=== PATIENT | male | born 1955 | race Caucasian/White ===

== ENCOUNTER 2017-01-12 18:42 | Emergency (ER) | payer OTHER ==
[2017-01-12] MEDS ORDERED: Ketorolac INJ* 30 MG/ML 1 ML VIAL IV ONE (21:58)
[2017-01-12] MEDS ORDERED: Morphine INJ* 4 MG/ML 1 ML CARPUJECT IV ONE (21:58)
[2017-01-12] MEDS ORDERED: Ondansetron INJ* 2 MG/ML VIAL IV ONE (21:58)
[2017-01-12] MEDS ORDERED: NS 0.9% 1000 ML* 2,000 ML IV ONE (21:58)
[2017-01-12 23:20] LABS: Hematocrit 42 % (42-52); Hemoglobin 14.6 g/dl (14.0-18.0); Mean Corpuscular HGB Conc 35 g/dl (31-36); Mean Corpuscular Hemoglobin 32 pg (27-31); Mean Corpuscular Volume 91 fL (80-94); Mean Platelet Volume 8 um3 (7.4-10.4); Red Blood Count 4.59 10^6/ul (4.0-5.4); Red Cell Distribution Width 13 % (10.5-15)
[2017-01-12 23:21] LABS: Urine Bilirubin Negative (Negative); Urine Glucose 3+(>=500 mg/dL) (Negative); Urine Nitrite Negative (Negative)
[2017-01-12 23:32] LABS: BUN/Creatinine Ratio 15.1 (8-20); EGFR African American 66.4 (>60); EGFR Non-African American 51.6 (>60); Globulin 2.9 g/dL (2-4); Potassium 3.6 mmol/L (3.5-5.0); Total Bilirubin 0.8 mg/dL (0.2-1.0); Total Protein 6.9 g/dL (6.4-8.9)
--- NOTE | 2017-01-13 01:09 | ED ---
Anabel Pastor Rebecca, scribed for [email or web address] on 01/12/17 at 2200 . Back Pain - HPI Summary HPI Summary: Pt is a 61 y/o M who presents to ED c/o back pain. Pain began this morning at approximately 0430 as R flank pain and it is now moving into the L flank as well. Pain has been a constant 4-5/10 ache with intermittent sharp, shooting pain that is ranked 8/10. Sx aggravated and alleviated by nothing, unchanged by Tylenol. Denies hematuria and urinary frequency. Dx R kidney stone in August or September. - History of Current Complaint Chief Complaint: EDFlankPain Stated Complaint: BACK PAIN POSS KIDNEY STONE Time Seen by Provider: 01/12/17 21:50 Hx Obtained From: Patient Onset/Duration: Lasting Hours, Still Present Timing: Constant - 4-5/10, Intermittent - 8/10 Back Pain Location: Is Discrete @ - R flank and L flank; R>L Severity Currently: Moderate - 4-5/10 Pain Intensity: 5 Pain Scale Used: 0-10 Numeric Character: Sharp - Intermittent, Aching - COnstant Aggravating Symptom(s): Nothing Alleviating Symptom(s): Nothing Associated Signs And Symptoms: Positive: Negative - Allergies/Home Medications Allergies/Adverse Reactions: Allergies Allergy/AdvReac Type Severity Reaction Status Date / Time Sulfa Drugs Allergy Mild Rash Verified 01/12/17 23:08 PMH/Surg Hx/FS Hx/Imm Hx Endocrine/Hematology History: Reports: Hx Diabetes Denies: Hx Systemic Lupus Erythematosus Cardiovascular History: Reports: Hx Hypercholesterolemia, Hx Hypertension Denies: Hx Congestive Heart Failure History: Reports: Hx Benign Prostatic Hyperplasia, Hx Renal Disease - URINARY INCONTINENCE Sensory History: Reports: Hx Contacts or Glasses Opthamlomology History: Reports: Hx Contacts or Glasses - Cancer History Hx Chemotherapy: No - Surgical History Surgery Procedure, Year, and Place: X5 VESSEL CABG Infectious Disease History: No Infectious Disease History: Reports: Hx Human Immunodeficiency Virus (HIV) Denies: Traveled Outside the [place] in Last 30 Days - Family History Known Family History: Positive: Cardiac Disease, Diabetes - Social History Alcohol Use: Occasionally Substance Use Type: Reports: None Smoking Status (MU): Never Smoked Tobacco Review of Systems Negative: frequency, hematuria Positive: Other - R and L flank pain, R>L All Other Systems Reviewed And Are Negative: Yes Physical Exam - Summary Physical Exam Summary: Appearance: Well appearing, no pain distress Skin: warm, dry, reflects adequate perfusion Head/face: normal Eyes: EOMI, KARLEY ENT: normal Neck: supple, nontender Respiratory: CTA, breath sounds present Cardiovascular: RRR, pulses symmetrical Abdomen: tenderness in the RUQ and RLQ, soft Bowel: present Musculoskeletal: normal, strength/ROM intact Neuro: normal, sensory motor intact, A&Ox3 Triage Information Reviewed: Yes Vital Signs On Initial Exam: Initial Vitals Temp Pulse Resp BP Pulse Ox 98.1 F 72 14 138/70 98 01/12/17 18:54 01/12/17 18:54 01/12/17 18:54 01/12/17 18:54 01/12/17 18:54 Vital Signs Reviewed: Yes Diagnostics - Vital Signs Vital Signs Temp Pulse Resp BP Pulse Ox 01/12/17 21:28 98.1 F 66 16 114/54 100 01/12/17 18:54 98.1 F 72 14 138/70 98 - Laboratory Result Diagrams: 01/12/17 22:20 01/12/17 22:20 Lab Statement: Any lab studies that have been ordered have been reviewed, and results considered in the medical decision making process. - CT CT Abd/Pel CT Interpretation: No Acute Changes - Negative for right or left urinary tract stone or obstruction. No bowel obstruction, free air, or free fluid. Negative for diverticulitis or colitis. Normal appendix visualized. Mild hepatomegaly. Spleen is borderline in size. Normal pancreas. Normal adrenal glands. Cholelithiasis noted. Ventral hernia containing fat but no bowel. Enlarged prostate. ED physician reviewed radiology report and agrees. CT Interpretation Completed By: Radiologist - Ultrasound No standard instances Ultrasound Interpretation Completed By: Radiologist - Abdomen US: There are small gallstones in the gallbladder. However, no gallbaldder wall thickening or pericholecystic fluid. Normal common bile duct is 5.8 mm.Enlarged liver, probably somewhat fatty. No right hydronephrosis. No right upper quadrant free fluid. ED physician reviewed radiology report and agrees. Re-Evaluation - Re-Evaluation First Eval Re-Evaluation Time: 00:31 Comment: Discussed US results with the pt. Back Pain Course/Dx - Course Assessment/Plan: Pt is a 61 y/o M who presents to ED c/o back pain. Pain began this morning at approximately 0430 as R flank pain and it is now moving into the L flank as well. Pain has been a constant 4-5/10 ache with intermittent sharp, shooting pain that is ranked 8/10. Sx unchanged by Tylenol. Denies hematuria and urinary frequency. Dx R kidney stone in August or September. CT Abd/Pel and Abdominal US reveal no acute findings. Pt refused CXR. UA negative for UTI. In the ED course, pt was given Morphine, Zofran, Toradol and IV fluids. Pt will be D/C to home with Dx of right flank pain with Rx for Zofran and a follow up with his PCP. He understands and agrees. Allergies noted. Elevated BP noted. Medications reviewed. - Diagnoses Provider Diagnoses: Right flank pain, Dehydration, Hyponatremia Discharge - Discharge Plan Condition: Stable Disposition: HOME Patient Education Materials: Flank Pain (ED) Referrals: David Diego MD [Primary Care Provider] - 3 Days The documentation as recorded by the Anabel aj Rebecca accurately reflects the service I personally performed and the decisions made by Adriane biggs Emmanuel.
[2017-01-13 01:10] VITALS: BP 98/58
--- NOTE | 2017-01-13 07:48 | RAD ---
CLINICAL HISTORY: Right flank pain COMPARISON: Similar CT examination dated September 13, 2014 TECHNIQUE: Noncontrast CT examination of the abdomen and pelvis from the lung bases through the initial tuberosities. FINDINGS: VISUALIZED LUNG BASES: The visualized lung bases are grossly clear. There is no pleural effusion. ABDOMEN AND PELVIS: Evaluation of the solid organs and vasculature is limited without intravenous contrast. The liver is top normal and maximum cephalocaudal projection measuring just over 20 cm. Liver is homogenous in attenuation. The spleen, pancreas and adrenal glands are grossly normal in appearance. There are hyperattenuating stones in the dependent portion of the gallbladder. The kidneys are normal in appearance without focal mass, calcification or signs of hydronephrosis. The small and large bowel are not distended.The patient's normal appendix is identified in the right lower quadrant measuring 5 mm in diameter (axial image 115 and coronal image 40). There is no gross retroperitoneal or mesenteric lymphadenopathy. The prostate gland measures 4.6 x 6.8 cm in the axial plane and 3.3 cm in the cephalocaudal projection. There are bilateral fat-containing inguinal hernias. The mildly calcified abdominal aorta and iliac arteries are normal in course and diameter. Degenerative changes include multilevel loss of intervertebral disc height involving the lower thoracic and lumbar spine.There are no sinister bone lesions. IMPRESSION: 1. No renal calculi or signs of urinary obstruction. 2. Normal gastrointestinal tract within the limitations of no oral or IV contrast. 3. Cholelithiasis without signs of biliary obstruction. 4. Borderline hepatomegaly.
--- NOTE | 2017-01-13 07:50 | RAD ---
HISTORY: Right upper quadrant pain. COMPARISONS: Similar examination September 23, [address] of the abdomen and pelvis that demonstrates cholelithiasis. TECHNIQUE: Multiple transverse and longitudinal ultrasound images were obtained of the right upper quadrant. FINDINGS: LIVER: The liver is normal in dimensions and exhibits mildly increased and homogenous echogenicity. Normal hepatic and portal venous blood flow is duplicated with color flow imaging. There is no gross intrahepatic biliary duct dilatation. GALLBLADDER AND EXTRAHEPATIC BILIARY DUCT: In the dependent portion of the gallbladder there are several mobile, echogenic shadowing gallstones.. There is no pericholecystic fluid or gallbladder wall thickening. The common bile duct measures a maximum diameter of 6 mm. PANCREAS: The portions of the pancreas not obscured by bowel gas are normal in appearance. RIGHT KIDNEY: The right kidney is normal in size, morphology and echogenicity. AORTA AND IVC: The visualized portions are normal in appearance and not pathologically dilated. IMPRESSION: 1. CHOLELITHIASIS WITHOUT SONOGRAPHIC SIGNS OF BILIARY OBSTRUCTION OR ACUTE INFLAMMATORY CHANGE. 2. HOMOGENOUSLY INCREASED ECHOGENICITY THE LIVER COULD BE SEEN IN THE SETTING OF HEPATIC STEATOSIS OR OTHER CHRONIC INFILTRATIVE DISEASE.
== END 2017-01-13 01:28 | disposition home or self-care (01) ==
LOC: ED 18:42
DX: R10.84 Generalized abdominal pain (principal); E86.0 Dehydration; M54.9 Dorsalgia, unspecified; E87.1 Hypo-osmolality and hyponatremia
CPT/HCPCS: 36415; 74176; 76705; 80053; 81003; 83605; 83690; 84484; 85025; 85610; 85730; 96374; 96375; 99284; J1885; J2270; J2405

== ENCOUNTER 2017-06-25 08:56 | Emergency (ER) | payer OTHER ==
[2017-06-25 09:13] VITALS: BP 136/64
--- NOTE | 2017-06-25 10:04 | UC ---
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 Patient noted left ear had some drainage 2 days ago did feel better but now again feels very bad - History of Current Complaint Chief Complaint: UCRespiratory Stated Complaint: EAR PAIN SORE THROAT COUGH CONGESTION Time Seen by Provider: 06/25/17 10:00 Hx Obtained From: Patient Onset/Duration: Gradual Onset, Lasting Weeks - 2 Severity Initially: Moderate Severity Currently: Moderate Pain Intensity: 5 Pain Scale Used: 0-10 Numeric Aggravating Factors: Nothing Alleviating Factors: Nothing Associated Signs/Symptoms: Positive: Discharge - From left ear - Allergies/Home Medications Allergies/Adverse Reactions: Allergies Allergy/AdvReac Type Severity Reaction Status Date / Time morphine Allergy Rash Verified 06/25/17 09:06 Home Medications: Home Medications Emtricitab/Rilpiviri/Tenof Ala [Odefsey Tablet] 200 mg PO DAILY 06/25/17 [ History Confirmed 06/25/17] Insulin Glargine/Lixisenatide [Soliqua 100 Unit-33 Mcg/ml Pen] 30 units DAILY [History Confirmed 06/25/17] Tadalafil [Cialis] 20 mg PO PRN 06/25/17 [History] Valsartan/HCTZ 160/12.5(NF) [Diovan HCT 160/12.5 (NF)] 160 mg PO DAILY 06/25/17 [History Confirmed 06/25/17] PMH/Surg Hx/FS Hx/Imm Hx Previously Healthy: No Endocrine History: Dyslipidemia Cardiovascular History: Hypertension Other History Of: HIV - Surgical History Surgical History: Yes Surgery Procedure, Year, and Place: X5 VESSEL CABG - Family History Known Family History: Positive: Cardiac Disease, Diabetes - Social History Occupation: Retired Lives: With Family Alcohol Use: Occasionally Substance Use Type: None Smoking Status (MU): Never Smoked Tobacco - Immunization History Most Recent Influenza Vaccination: 2013 Most Recent Tetanus Shot: within 10 years Most Recent Pneumonia Vaccination: never Review of Systems Constitutional: Fever, Chills Skin: Negative Eyes: Negative ENT: Ear Ache - left Respiratory: Cough Cardiovascular: Negative Gastrointestinal: Negative Genitourinary: Negative Motor: Negative Neurovascular: Negative Musculoskeletal: Negative Neurological: Negative Psychological: Negative Is Patient Immunocompromised?: Yes All Other Systems Reviewed And Are Negative: Yes Physical Exam Triage Information Reviewed: Yes Appearance: No Pain Distress, Well-Nourished, Ill-Appearing Vital Signs: Initial Vital Signs Temp 98.3 F 06/25/17 09:07 Pulse 81 06/25/17 09:07 Resp 18 06/25/17 09:07 BP 136/64 06/25/17 09:07 Pulse Ox 100 06/25/17 09:07 Vital Signs Reviewed: Yes Eye Exam: Normal Eyes: Positive: Conjunctiva Clear ENT Exam: Normal ENT: Positive: Normal ENT inspection, Hearing grossly normal, Pharynx normal, Nasal congestion, Nasal drainage, TM bulging - right, Uvula midline. Negative: Muffled voice, Hoarse voice, Dental tenderness, Sinus tenderness Dental Exam: Normal Neck exam: Normal Neck: Positive: Supple, Nontender, No Lymphadenopathy Respiratory Exam: Normal Respiratory: Positive: Chest non-tender, Lungs clear, Normal breath sounds, No respiratory distress, No accessory muscle use - KLL Cardiovascular Exam: Normal Cardiovascular: Positive: RRR, No Murmur, Pulses Normal, Brisk Capillary Refill - Out so we will Musculoskeletal Exam: Normal Musculoskeletal: Positive: Strength Intact, ROM Intact, No Edema Neurological Exam: Normal Neurological: Positive: Alert, Muscle Tone Normal Psychological Exam: Normal Skin Exam: Normal Diagnostics - Radiology No standard instances Xray Interpretation: No Acute Changes Radiology Interpretation Completed By: ED Physician, Radiologist Ear Complaint Course/Dx - Course Course Of Treatment: Augmentin ibuprofen Tylenol OTC medications to manage symptoms Robitussin and codeine (patient reports allergy to morphine but has taken both codeine and Tylenol codeine and hydrocodone in the past without difficulty) increase fluids follow with PCP in the next 3 days should symptoms resolved to the emergency department should symptoms worsen in anyway - Differential Dx/Diagnosis Provider Diagnoses: right otitis media, ruptured right TM, bronchitis Discharge - Sign-Out/Discharge Documenting (check all that apply): Discharge - Discharge Plan Condition: Stable Disposition: HOME Prescriptions: Amoxicillin/Clavulanate TAB* [Augmentin TAB 875*] 875 mg PO BID #20 tab guaiFENesin/CODIEN 100MG-10MG* [Robitussin AC 100Mg-10Mg*] 5 - 10 ml PO Q4H PRN #120 ml MDD 40 PRN Reason: cough Patient Education Materials: Ruptured Eardrum (ED), Ear Infection (ED), Acute Bronchitis (ED) Referrals: David Diego MD [Primary Care Provider] - 3 Days - Billing Disposition and Condition Condition: STABLE Disposition: HOME
--- NOTE | 2017-06-25 10:30 | RAD ---
Indication: Fever, cough. 2 views of the chest including dual energy PA views demonstrates no mediastinal shift. Heart is of normal size and configuration. Lung warren appear clear. Patient is status post transsternal thoracotomy. Comparison is made with previous exam dated September 23, 2016 IMPRESSION: No active cardiopulmonary disease is noted.
== END 2017-06-25 11:06 | disposition home or self-care (01) ==
LOC: UCEAST 08:56
DX: J40 Bronchitis, not specified as acute or chronic (principal); H66.91 Otitis media, unspecified, right ear; H72.91 Unspecified perforation of tympanic membrane, right ear; Z88.5 Allergy status to narcotic agent
CPT/HCPCS: 71046; 99212; G0463

== ENCOUNTER 2021-06-23 01:41 | Inpatient (IN) ==
[2021-06-23] MEDS ORDERED: Diltiazem (ADVAN VIAL) 100 MG/100 ML ADDV.BAG IV ONE (01:46)
[2021-06-23] MEDS ORDERED: Diltiazem (ADVAN VIAL) 100 MG/100 ML ADDV.BAG IV SCH (02:00)
[2021-06-23 02:21] LABS: ABS Basophils 0.1 10^3/ul (0-0.2); ABS Eosinophils 0.2 10^3/ul (0-0.6); ABS Lymphocytes 1.2 10^3/ul (1.0-4.8); ABS Monocytes 0.7 10^3/ul (0-0.8); ABS Neutrophils 5.7 10^3/ul (1.5-7.7); Eosinophil % 2.1 %; Hematocrit 41 % (42-52); Hemoglobin 14.6 g/dL (14.0-18.0); Lymphocyte % 15.2 %; Mean Corpuscular HGB Conc 36 g/dL (31-36); Mean Corpuscular Hemoglobin 32 pg (27-31); Mean Corpuscular Volume 91 fL (80-94); Mean Platelet Volume 7.4 fL (7.4-10.4); Nucleated Red Blood Cells % 0.1; Platelet Count 193 10^3/uL (150-450); Red Blood Count 4.53 10^6 /uL (4.18-5.48); Red Cell Distribution Width 13 % (10-15); White Blood Count 7.8 10^3/uL (3.5-10.8)
[2021-06-23] MEDS ORDERED: Metoprolol Tartrate 5 mg VIAL 5 ml VIAL (1 mg/ml) ONE (02:27)
[2021-06-23] MEDS: Metoprolol Tartrate 5 mg VIAL 5 ml VIAL (1 mg/ml) IV ONE ×3 (02:30→03:00)
[2021-06-23 02:40] LABS: High Sens Troponin Baseline 84 pg/mL (<20)
[2021-06-23] MEDS ORDERED: Etomidate 20 mg/10 ml 2 MG/ML 10 ml VIAL ONE (03:02)
[2021-06-23] MEDS ORDERED: Atropine 0.1 MG/ML 10 ml SYR (1 mg) ONE ×2 (03:16→03:17)
[2021-06-23 03:33] LABS: ALT 32 U/L (7-52); Albumin 4.6 g/dL (3.2-5.2); Albumin/Globulin Ratio 1.9 (1-3); Alkaline Phosphatase 108 U/L (35-149); Blood Urea Nitrogen 24 mg/dL (6-24); CO2 Carbon Dioxide 19 mmol/L (22-32); Chloride 99 mmol/L (101-111); Globulin 2.4 g/dL (2-4); Glucose 242 mg/dL (70-100); Magnesium 1.7 mg/dL (1.9-2.7); Sodium 133 mmol/L (135-145); eGFR CKD-EPI 65.6 (>60)
[2021-06-23 03:48] LABS: TSH Ultra Thyroid Stim Horm 2.45 mcIU/mL (0.34-5.60)
[2021-06-23 03:51] LABS: High Sensitivity Troponin 1 Hr 855 pg/mL (<20)
[2021-06-23] MEDS ORDERED: Magnesium Sulfate 2 gm BAG 2 GM/50 ML BAG IVPB ONE (04:03)
[2021-06-23 04:08] LABS: Anion Gap 15 mmol/L (2-11)
[2021-06-23 05:24] LABS: Potassium Redraw 4.2 mmol/L (3.5-5.0)
[2021-06-23] MEDS ORDERED: Dextrose 50% Syringe 50 ml 25 GM/50 ML SYRINGE IV PUSH PRN (09:15)
[2021-06-23] MEDS: Insulin GLARGINE 100 un/ml 10 ml VIAL SUBCUT SCH ×2 (09:19→21:28)
[2021-06-23] MEDS: PTO:ICOSAPENT ETHYL 1 GM CAPSULE (NF) PO SCH ×2 (09:21→21:29)
[2021-06-23] MEDS: PTO:Emtricitabine/Rilpivirine/Teno (Odefsey) 200/25/25 TABLET PO SCH (14:45)
[2021-06-23 23:12] LABS: Urine Appearance Clear; Urine Bilirubin Negative (Negative); Urine Blood Negative (Negative); Urine Color Straw; Urine Glucose 2+(150 mg/dL) (Negative); Urine Ketones Negative (Negative); Urine Nitrite Negative (Negative); Urine Protein Negative (Negative); Urine Specific Gravity 1.008 (1.002-1.030); Urine Urobilinogen Negative (Negative)
[2021-06-24 06:24] LABS: ABS Eosinophils 0.2 10^3/ul (0-0.6); ABS Lymphocytes 1.1 10^3/ul (1.0-4.8); ABS Monocytes 0.4 10^3/ul (0-0.8); Eosinophil % 2.9 %; Hematocrit 39 % (42-52); Hemoglobin 13.6 g/dL (14.0-18.0); Lymphocyte % 18.8 %; Mean Corpuscular HGB Conc 35 g/dL (31-36); Mean Corpuscular Hemoglobin 32 pg (27-31); Mean Corpuscular Volume 91 fL (80-94); Mean Platelet Volume 7.2 fL (7.4-10.4); Platelet Count 182 10^3/uL (150-450); Red Blood Count 4.24 10^6 /uL (4.18-5.48); Red Cell Distribution Width 13 % (10-15); White Blood Count 5.7 10^3/uL (3.5-10.8)
[2021-06-24 06:31] LABS: INR 1.2 (0.86-1.15)
[2021-06-24 06:53] LABS: Albumin 4.2 g/dL (3.2-5.2); Albumin/Globulin Ratio 2.5 (1-3); Calcium 9.1 mg/dL (8.6-10.3); Globulin 1.7 g/dL (2-4); HDL Cholesterol 27.3 mg/dL; Magnesium 1.8 mg/dL (1.9-2.7); Potassium 3.7 mmol/L (3.5-5.0); Total Bilirubin 0.9 mg/dL (0.2-1.0); Total Protein 5.9 g/dL (6.4-8.9); eGFR CKD-EPI 76.9 (>60)
[2021-06-24] MEDS ORDERED: Perflutren Lipid Microsphere 3 ML VIAL ONE (08:43)
[2021-06-24] MEDS: Insulin GLARGINE 100 un/ml 10 ml VIAL SUBCUT SCH ×2 (09:21→21:22)
[2021-06-24] MEDS: PTO:Emtricitabine/Rilpivirine/Teno (Odefsey) 200/25/25 TABLET PO SCH ×2 (09:22→10:40)
[2021-06-24] MEDS: PTO:ICOSAPENT ETHYL 1 GM CAPSULE (NF) PO SCH ×2 (09:26→21:10)
[2021-06-24] MEDS: Emtricitabine/Rilpivirine/Teno (Odefsey) 200/25/25 TABLET PO SCH (21:11)
[2021-06-25 05:15] LABS: ABS Eosinophils 0.2 10^3/ul (0-0.6); ABS Lymphocytes 1.3 10^3/ul (1.0-4.8); ABS Monocytes 0.6 10^3/ul (0-0.8); Eosinophil % 3.5 %; Hematocrit 41 % (42-52); Lymphocyte % 21.3 %; Mean Corpuscular HGB Conc 35 g/dL (31-36); Mean Corpuscular Hemoglobin 32 pg (27-31); Mean Corpuscular Volume 92 fL (80-94); Mean Platelet Volume 7.4 fL (7.4-10.4); Platelet Count 195 10^3/uL (150-450); Red Blood Count 4.43 10^6 /uL (4.18-5.48); Red Cell Distribution Width 13 % (10-15); White Blood Count 6.2 10^3/uL (3.5-10.8)
[2021-06-25 05:28] LABS: Activated Partial Thrombo Time 30.6 seconds (26.0-38.0); INR 1.09 (0.86-1.15)
[2021-06-25 05:43] LABS: Blood Urea Nitrogen 27 mg/dL (6-24); CO2 Carbon Dioxide 27 mmol/L (22-32); Calcium 9.2 mg/dL (8.6-10.3); Chloride 103 mmol/L (101-111); Glucose 127 mg/dL (70-100); Magnesium 1.9 mg/dL (1.9-2.7); Sodium 138 mmol/L (135-145); eGFR CKD-EPI 62.5 (>60)
[2021-06-25 05:47] LABS: Anion Gap 8 mmol/L (2-11)
[2021-06-25] MEDS: Insulin GLARGINE 100 un/ml 10 ml VIAL SUBCUT SCH ×2 (08:35→21:15)
[2021-06-25] MEDS: PTO:ICOSAPENT ETHYL 1 GM CAPSULE (NF) PO SCH ×2 (08:37→20:27)
[2021-06-25] MEDS ORDERED: Heparin 1,000 UNIT/ML 10 ml (10,000 UNITS) CATHLAB/DIALYSIS ONE (12:07)
[2021-06-25] MEDS ORDERED: fentaNYL 100 mcg/2 ml 50 MCG/ML VIAL ONE (12:07)
[2021-06-25] MEDS ORDERED: Heparin 2 UNITS/ML 1000 mls 2,000 ML IV ONE (12:07)
[2021-06-25] MEDS ORDERED: Midazolam 5 mg/5 ml VIAL 1 mg/ml 5 ml VIAL (5 mg) ONE (12:07)
[2021-06-25] MEDS ORDERED: Iohexol 350 (CONTRAST) 200 ML MDV IV ONE (12:07)
[2021-06-25] MEDS ORDERED: nitroGLYCERIN DRIP 100 MCG/ML 250 ML BTL ONE (12:08)
[2021-06-25] MEDS ORDERED: Lidocaine 1% MPF 5 ML VIAL ONE (12:14)
[2021-06-25] MEDS ORDERED: NS 0.9% 1000 ml BAG 1,000 ML IV SCH (18:30)
[2021-06-25] MEDS: Emtricitabine/Rilpivirine/Teno (Odefsey) 200/25/25 TABLET PO SCH (20:27)
[2021-06-26 06:43] LABS: CO2 Carbon Dioxide 18 mmol/L (22-32); Calcium 9.1 mg/dL (8.6-10.3); Chloride 106 mmol/L (101-111); Sodium 135 mmol/L (135-145)
[2021-06-26 06:49] LABS: Anion Gap 11 mmol/L (2-11); Blood Urea Nitrogen 24 mg/dL (6-24); Glucose 104 mg/dL (70-100); eGFR CKD-EPI 75.2 (>60)
[2021-06-26] MEDS: Insulin GLARGINE 100 un/ml 10 ml VIAL SUBCUT SCH ×2 (08:51→21:36)
[2021-06-26] MEDS: PTO:ICOSAPENT ETHYL 1 GM CAPSULE (NF) PO SCH ×2 (12:56→21:34)
[2021-06-26] MEDS: Emtricitabine/Rilpivirine/Teno (Odefsey) 200/25/25 TABLET PO SCH (21:35)
[2021-06-27 07:23] LABS: ABS Eosinophils 0.1 10^3/ul (0-0.6); ABS Lymphocytes 1.1 10^3/ul (1.0-4.8); ABS Monocytes 0.6 10^3/ul (0-0.8); ABS Neutrophils 4.4 10^3/ul (1.5-7.7); Eosinophil % 2.3 %; Hematocrit 39 % (42-52); Hemoglobin 13.7 g/dL (14.0-18.0); Lymphocyte % 17.5 %; Mean Corpuscular HGB Conc 35 g/dL (31-36); Mean Corpuscular Hemoglobin 32 pg (27-31); Mean Corpuscular Volume 91 fL (80-94); Mean Platelet Volume 7.4 fL (7.4-10.4); Platelet Count 214 10^3/uL (150-450); Red Blood Count 4.28 10^6 /uL (4.18-5.48); Red Cell Distribution Width 13 % (10-15); White Blood Count 6.3 10^3/uL (3.5-10.8)
[2021-06-27 07:42] LABS: Calcium 9.1 mg/dL (8.6-10.3); Potassium 4.2 mmol/L (3.5-5.0); eGFR CKD-EPI 59.1 (>60)
[2021-06-27] MEDS: Insulin GLARGINE 100 un/ml 10 ml VIAL SUBCUT SCH (08:33)
[2021-06-27] MEDS: PTO:ICOSAPENT ETHYL 1 GM CAPSULE (NF) PO SCH (08:36)
[2021-06-27 14:40] VITALS: BP 108/61
[2021-06-27] MEDS ORDERED: Enoxaparin 80 MG/0.8 ML SYR SUBCUT SCH (15:00)
== END 2021-06-27 14:55 | disposition short-term general hospital (02) | DRG 281 ==
LOC: ED 01:41 → EDHOLD 01:41 → SUATTDRO 03:53 → ICU 06:40 → SUATTDRO 09:30 → ICU 06-25 09:19 → MEDTELE 06-26 17:03
PROVIDERS: ADMIT Internal Medicine; ATTEND Internal Medicine